=== PATIENT | male | born 1980 | race Caucasian/White ===

== ENCOUNTER 2018-02-07 22:00 | Emergency (ER) | payer SELFPAY | END 2018-02-07 23:31 | disposition home or self-care (01) | LOC: ER 22:00 | DX: K04.7 Periapical abscess without sinus (principal); K02.9 Dental caries, unspecified; F17.210 Nicotine dependence, cigarettes, uncomplicated | CPT/HCPCS: 99283 ==

== ENCOUNTER 2018-02-11 13:31 | Inpatient (IN) | payer SELFPAY ==
[2018-02-11] MEDS: CLINDAMYCIN 900MG PREMIX 50 ML IV (13:53)
[2018-02-11] MEDS: KETOROLAC 30 MG/ML INJ. IV (13:54)
[2018-02-11] MEDS: methylPREDNISolone SOD SUCC PF 125 MG/2 ML VIAL. IV (13:54)
[2018-02-11] MEDS: MORPHINE SULFATE 10 MG/ML VIAL. IV (13:54)
[2018-02-11 13:55] LABS: ADD MAN DIFF? NO
[2018-02-11 13:57] LABS: BASO # 0.1 x10^3/uL (0.0-0.2); BASO % 1 % (0-3); EOS # 0.2 x10^3/uL (0.0-0.7); EOS % 2 % (0-3); HEMATOCRIT 45.2 % (39.0-53.0); HEMOGLOBIN 15.6 g/dL (13.0-17.5); LYMPH # 1.8 x10^3/uL (1.0-4.8); LYMPH % 16 % (24-48); MEAN CORPUSCULAR HEMOGLOBIN 31 pg (25-35); MEAN CORPUSCULAR HGB CONC 35 g/dL (31-37); MEAN CORPUSCULAR VOLUME 89 fL (79-100); MONO # 0.4 x10^3/uL (0.0-1.1); MONO % 4 % (0-9); NEUT # 8.8 x10^3uL (1.8-7.7); NEUT % 78 % (31-73); PLATELET COUNT 442 x10^3/uL (140-400); RED CELL DISTRIBUTION WIDTH 13.4 % (11.5-14.5); WHITE BLOOD COUNT 11.3 x10^3/uL (4.0-11.0)
[2018-02-11] MEDS ORDERED: CONTRAST GIVEN MC (14:00)
[2018-02-11] MEDS: IOHEXOL 300 MG/ML 100ML VIAL. IV (14:00)
[2018-02-11 14:08] LABS: ANION GAP 9 (6-14); BLOOD UREA NITROGEN 14 mg/dL (8-26); BUN/CREATININE RATIO 14 (6-20); CALCIUM 9.8 mg/dL (8.5-10.1); CARBON DIOXIDE 30 mmol/L (21-32); CHLORIDE 99 mmol/L (98-107); GFR 84.5; GLUCOSE 148 mg/dL (70-99); POTASSIUM 4.4 mmol/L (3.5-5.1); SODIUM 138 mmol/L (136-145)
[2018-02-11 14:10] LABS: ETHANOL < 10 mg/dL (0-10)
[2018-02-11 14:13] LABS: ALBUMIN 3.4 g/dL (3.4-5.0); ALBUMIN/GLOBULIN RATIO 0.7 (1.0-1.7); ALK PHOS 82 U/L (46-116); ALT (SGPT) 29 U/L (16-63); AST (SGOT) 14 U/L (15-37); C-REACTIVE PROTEIN 137.4 mg/L (0-3.3); TOTAL BILIRUBIN 0.5 mg/dL (0.2-1.0)
[2018-02-11 14:16] LABS: LACTIC ACID 1.5 mmol/L (0.4-2.0)
[2018-02-11 14:58] LABS: SEDIMENTATION RATE 46 (0-15)
[2018-02-11] MEDS: IV NORMAL SALINE 1000ML BAG 1,000 ML IV (15:15)
[2018-02-11] MEDS ORDERED: VANCOMYCIN PER PHARMACY MC ×2 (15:45→16:45)
[2018-02-11] MEDS: VANCOMYCIN 2 GM in IV 1/2 NORMAL SALINE 500 ML IV (16:00)
[2018-02-11] MEDS ORDERED: ACETAMINOPHEN 325 MG TABLET. PO (16:45)
[2018-02-11] MEDS ORDERED: PROCHLORPERAZINE 25 MG SUPP.RECT. PR (16:45)
[2018-02-11] MEDS ORDERED: PROCHLORPERAZINE 10 MG/2 ML VIAL. IV (16:45)
[2018-02-11] MEDS ORDERED: ONDANSETRON PF 4 MG/2 ML VIAL. IV ×2 (16:45)
[2018-02-11] MEDS ORDERED: CALCIUM CARBONATE 500 MG TAB.CHEW PO (16:45)
[2018-02-11] MEDS ORDERED: MAG HYDROX/ALUMINUM HYD/SIMETH 30 ML ORAL.SUSP PO (16:45)
[2018-02-11] MEDS ORDERED: ZOLPIDEM 5 MG TABLET. PO (16:45)
[2018-02-11] MEDS ORDERED: NICOTINE 21MG PATCH. TD (17:00)
[2018-02-11 17:41] LABS: AMPHETAMINE/METHAMPHETAMINE NEG (NEG); BARBITURATES NEG (NEG); BENZODIAZEPINES NEG (NEG); CANNABINOIDS NEG (NEG); COCAINE NEG (NEG); ETHANOL, URINE NEG (NEG); METHADONE NEG (NEG); OPIATES POS (NEG); PHENCYCLIDINE NEG (NEG)
[2018-02-11] MEDS ORDERED: AMPICILLIN/SULBACTAM 1.5 GM in IV NORMAL SALINE 50ML 50 ML IV (18:00)
[2018-02-11] MEDS: ACETAMINOPHEN/CODEINE 300/30MG TABLET. PO (18:34)
[2018-02-11] MEDS: SULBACTAM IVP ×2 (20:06→20:30)
[2018-02-11] MEDS: AMPICILLIN IVP ×2 (20:06→20:30)
[2018-02-11] MEDS: CHLORHEXIDINE 0.12% 15 ML MOUTHWASH. SWSP (21:20)
[2018-02-11] MEDS: IBUPROFEN 400 MG TABLET. PO (21:20)
[2018-02-11] MEDS: PSEUDOEPHEDRINE ER 120 MG TABLET.ER. PO (21:20)
[2018-02-11] MEDS ORDERED: CLINDAMYCIN 900MG PREMIX 50 ML IV (22:00)
[2018-02-12] MEDS ORDERED: VANCOMYCIN 1.25 GM in IV 1/2 NORMAL SALINE 250 ML IV
[2018-02-12] MEDS: ACETAMINOPHEN/CODEINE 300/30MG TABLET. PO ×4 (00:40→20:32)
[2018-02-12] MEDS: AMPICILLIN IVP ×4 (03:00→20:30)
[2018-02-12] MEDS: SULBACTAM IVP ×4 (03:00→20:30)
[2018-02-12 04:50] LABS: BASO % 0 % (0-3); EOS % 0 % (0-3); HEMATOCRIT 41.5 % (39.0-53.0); LYMPH # 0.9 x10^3/uL (1.0-4.8); LYMPH % 7 % (24-48); MEAN CORPUSCULAR HEMOGLOBIN 30 pg (25-35); MEAN CORPUSCULAR HGB CONC 34 g/dL (31-37); MEAN CORPUSCULAR VOLUME 89 fL (79-100); MONO # 0.6 x10^3/uL (0.0-1.1); MONO % 5 % (0-9); NEUT # 10.7 x10^3uL (1.8-7.7); NEUT % 87 % (31-73); PLATELET COUNT 451 x10^3/uL (140-400); RED BLOOD COUNT 4.65 x10^6/uL (4.30-5.70); RED CELL DISTRIBUTION WIDTH 13.6 % (11.5-14.5); WHITE BLOOD COUNT 12.3 x10^3/uL (4.0-11.0)
[2018-02-12 04:58] LABS: ADD MAN DIFF? YES
[2018-02-12 05:25] LABS: ANION GAP 12 (6-14); BLOOD UREA NITROGEN 17 mg/dL (8-26); CALCIUM 9.3 mg/dL (8.5-10.1); CARBON DIOXIDE 24 mmol/L (21-32); CHLORIDE 102 mmol/L (98-107); CREATININE 1.1 mg/dL (0.7-1.3); GFR 75.7; GLUCOSE 147 mg/dL (70-99); POTASSIUM 4.5 mmol/L (3.5-5.1); SODIUM 138 mmol/L (136-145)
[2018-02-12 07:34] LABS: % BANDS 2 % (0-9); % LYMPHS 5 % (24-48); % MONOS 3 % (0-10); % MYELOS 1 % (0-0); % SEGS 89 % (35-66); PLT ESTIMATE INCREASED (ADEQUATE)
[2018-02-12] MEDS: FLUTICASONE 50MCG/NASAL SPRAY 16GM BOTTLE. NS (08:18)
[2018-02-12] MEDS: IBUPROFEN 400 MG TABLET. PO ×3 (08:19→20:31)
[2018-02-12] MEDS: MORPHINE SULFATE 4 MG/ML DISP.SYRIN. IV ×2 (08:26→15:38)
[2018-02-12] MEDS: PSEUDOEPHEDRINE ER 120 MG TABLET.ER. PO ×2 (09:47→20:31)
[2018-02-12] MEDS: CHLORHEXIDINE 0.12% 15 ML MOUTHWASH. SWSP ×2 (13:09→20:33)
[2018-02-12] MEDS: LACTOBACILLUS RHAMNOSUS GG 1 CAPSULE. PO (20:30)
[2018-02-13] MEDS: SULBACTAM IVP ×3 (02:41→14:39)
[2018-02-13] MEDS: AMPICILLIN IVP ×3 (02:41→14:39)
[2018-02-13] MEDS: ACETAMINOPHEN/CODEINE 300/30MG TABLET. PO ×3 (02:42→15:20)
[2018-02-13 06:31] LABS: ADD MAN DIFF? NO
[2018-02-13 06:33] LABS: BASO # 0.1 x10^3/uL (0.0-0.2); BASO % 1 % (0-3); EOS # 0.1 x10^3/uL (0.0-0.7); EOS % 1 % (0-3); HEMATOCRIT 40.2 % (39.0-53.0); LYMPH # 2.4 x10^3/uL (1.0-4.8); LYMPH % 30 % (24-48); MEAN CORPUSCULAR HEMOGLOBIN 31 pg (25-35); MEAN CORPUSCULAR HGB CONC 35 g/dL (31-37); MEAN CORPUSCULAR VOLUME 88 fL (79-100); MONO # 0.5 x10^3/uL (0.0-1.1); MONO % 7 % (0-9); NEUT # 4.8 x10^3uL (1.8-7.7); NEUT % 62 % (31-73); PLATELET COUNT 429 x10^3/uL (140-400); RED BLOOD COUNT 4.57 x10^6/uL (4.30-5.70); RED CELL DISTRIBUTION WIDTH 13.3 % (11.5-14.5); WHITE BLOOD COUNT 7.8 x10^3/uL (4.0-11.0)
[2018-02-13 06:53] LABS: ANION GAP 7 (6-14); BLOOD UREA NITROGEN 18 mg/dL (8-26); CALCIUM 8.7 mg/dL (8.5-10.1); CARBON DIOXIDE 27 mmol/L (21-32); CHLORIDE 105 mmol/L (98-107); GFR 84.5; GLUCOSE 91 mg/dL (70-99); POTASSIUM 4.2 mmol/L (3.5-5.1); SODIUM 139 mmol/L (136-145)
[2018-02-13] MEDS: LACTOBACILLUS RHAMNOSUS GG 1 CAPSULE. PO ×2 (09:08→21:03)
[2018-02-13] MEDS: IBUPROFEN 400 MG TABLET. PO ×3 (09:08→21:03)
[2018-02-13] MEDS: PSEUDOEPHEDRINE ER 120 MG TABLET.ER. PO ×2 (09:09→21:02)
[2018-02-13] MEDS: MORPHINE SULFATE 4 MG/ML DISP.SYRIN. IV ×2 (09:09→21:04)
[2018-02-13] MEDS: CHLORHEXIDINE 0.12% 15 ML MOUTHWASH. SWSP ×2 (09:09→21:04)
[2018-02-13] MEDS: FLUTICASONE 50MCG/NASAL SPRAY 16GM BOTTLE. NS (09:38)
[2018-02-13] MEDS ORDERED: AMPICILLIN IVP (14:30)
[2018-02-13] MEDS ORDERED: SULBACTAM IVP (14:30)
[2018-02-13] MEDS: AMPICILLIN/SULBACTAM IV Push 3 GM VIAL. IVP (18:14)
[2018-02-14] MEDS: AMPICILLIN/SULBACTAM IV Push 3 GM VIAL. IVP ×5 (00:33→23:22)
[2018-02-14] MEDS: ACETAMINOPHEN/CODEINE 300/30MG TABLET. PO ×3 (00:42→19:56)
[2018-02-14] MEDS: IBUPROFEN 400 MG TABLET. PO ×3 (08:30→19:55)
[2018-02-14] MEDS: FLUTICASONE 50MCG/NASAL SPRAY 16GM BOTTLE. NS (08:30)
[2018-02-14] MEDS: LACTOBACILLUS RHAMNOSUS GG 1 CAPSULE. PO ×2 (08:30→19:55)
[2018-02-14] MEDS: PSEUDOEPHEDRINE ER 120 MG TABLET.ER. PO ×2 (08:30→19:55)
[2018-02-14] MEDS: CHLORHEXIDINE 0.12% 15 ML MOUTHWASH. SWSP ×2 (08:30→19:56)
[2018-02-14] MEDS: HYDROcodone/APAP 7.5/325MG 1 TAB TABLET PO ×2 (17:33→23:22)
[2018-02-15] MEDS: ACETAMINOPHEN/CODEINE 300/30MG TABLET. PO (02:14)
[2018-02-15] MEDS: HYDROcodone/APAP 7.5/325MG 1 TAB TABLET PO ×2 (05:49→12:10)
[2018-02-15] MEDS: AMPICILLIN/SULBACTAM IV Push 3 GM VIAL. IVP ×2 (05:49→12:10)
[2018-02-15 07:00] LABS: BASO # 0.1 x10^3/uL (0.0-0.2); BASO % 1 % (0-3); EOS # 0.4 x10^3/uL (0.0-0.7); EOS % 4 % (0-3); HEMATOCRIT 41.2 % (39.0-53.0); HEMOGLOBIN 14.1 g/dL (13.0-17.5); LYMPH # 3.5 x10^3/uL (1.0-4.8); LYMPH % 38 % (24-48); MEAN CORPUSCULAR HEMOGLOBIN 30 pg (25-35); MEAN CORPUSCULAR HGB CONC 34 g/dL (31-37); MEAN CORPUSCULAR VOLUME 89 fL (79-100); MONO # 0.5 x10^3/uL (0.0-1.1); MONO % 6 % (0-9); NEUT # 4.6 x10^3uL (1.8-7.7); NEUT % 51 % (31-73); PLATELET COUNT 440 x10^3/uL (140-400); RED BLOOD COUNT 4.64 x10^6/uL (4.30-5.70); WHITE BLOOD COUNT 9.1 x10^3/uL (4.0-11.0)
[2018-02-15 07:01] LABS: ALBUMIN 2.8 g/dL (3.4-5.0); ALBUMIN/GLOBULIN RATIO 0.7 (1.0-1.7); ALK PHOS 70 U/L (46-116); ALT (SGPT) 41 U/L (16-63); ANION GAP 3 (6-14); AST (SGOT) 16 U/L (15-37); BLOOD UREA NITROGEN 16 mg/dL (8-26); BUN/CREATININE RATIO 15 (6-20); CALCIUM 8.9 mg/dL (8.5-10.1); CARBON DIOXIDE 31 mmol/L (21-32); CHLORIDE 106 mmol/L (98-107); CREATININE 1.1 mg/dL (0.7-1.3); GFR 75.7; GLUCOSE 82 mg/dL (70-99); POTASSIUM 4.5 mmol/L (3.5-5.1); SODIUM 140 mmol/L (136-145); TOTAL BILIRUBIN 0.2 mg/dL (0.2-1.0)
[2018-02-15 07:07] LABS: ADD MAN DIFF? YES
[2018-02-15] MEDS: FLUTICASONE 50MCG/NASAL SPRAY 16GM BOTTLE. NS (08:43)
[2018-02-15] MEDS: PSEUDOEPHEDRINE ER 120 MG TABLET.ER. PO (08:43)
[2018-02-15] MEDS: LACTOBACILLUS RHAMNOSUS GG 1 CAPSULE. PO (08:43)
[2018-02-15] MEDS: IBUPROFEN 600 MG TABLET. PO (08:44)
[2018-02-15] MEDS: CHLORHEXIDINE 0.12% 15 ML MOUTHWASH. SWSP (08:44)
[2018-02-15 10:00] LABS: % BASOS 1 % (0-3); % EOS 3 % (0-5); % LYMPHS 26 % (24-48); % METAS 2 % (0-0); % MONOS 7 % (0-10); % SEGS 61 % (35-66); PLT ESTIMATE INCREASED (ADEQUATE)
== END 2018-02-15 14:10 | disposition home or self-care (01) | DRG 872 ==
LOC: 4 NORTH 17:43 → ER 13:31 → 4 NORTH 02-12 14:15
DX: A41.9 Sepsis, unspecified organism (principal); L03.211 Cellulitis of face; J01.00 Acute maxillary sinusitis, unspecified; K04.7 Periapical abscess without sinus; F17.210 Nicotine dependence, cigarettes, uncomplicated
CPT/HCPCS: 36415; 70487; 80048; 80053; 80307; 83605; 85007; 85025; 85651; 86140; G0480; J0295; J1885; J2270; J2930; J3370; J3490; J7030; Q9967

== ENCOUNTER 2018-07-01 09:47 | Emergency (ER) | payer SELFPAY ==
[~2018-07-01] VITALS: Ht 180.3 cm; Wt 90.7 kg
[~2018-07-01 09:47] MED LIST: AMOX1TAB61 PO; CHLO473M SWSP; GUAI600T47 PO; HYDR-2762 PO; HYDR-971 PO; PSEU30CA PO
[2018-07-01 10:00] VITALS: BP 122/89
[2018-07-01] MEDS ORDERED: cefTRIAXone IM 1 GM VIAL IM ONE (10:15)
[2018-07-01] MEDS ORDERED: HYDROcodone/APAP 5/325MG 1 TAB TABLET PO ONE (10:15)
[2018-07-01] MEDS ORDERED: LIDOCAINE 1% PF 2 ML VIAL. INJ ONE (10:15)
[2018-07-01] MEDS ORDERED: CLIN150C14 PO (10:19)
[2018-07-01] MEDS ORDERED: HYDR-971 PO (10:19)
--- NOTE | 2018-07-01 10:20 | PHYS DOC ---
Past Medical History Past Medical History: No Pertinent History Past Surgical History: No Surgical History Alcohol Use: None Drug Use: None Adult General Chief Complaint Chief Complaint: DENTAL PROBLEM HPI HPI Patient is a 38 year old male who presents with a dental abscess that began a month ago. Patient denies any fever, denies any trismus. He states his had a similar abscess in January. He states he followed up with a dentist who cleaned his teeth and recommended dental fillings but he does not have money for dental filling. Review of Systems Review of Systems Constitutional: Denies fever or chills [] Eyes: Denies change in visual acuity, redness, or eye pain [] HENT: Reports dental abscess. Denies nasal congestion or sore throat [] Respiratory: Denies cough or shortness of breath [] Cardiovascular: No additional information not addressed in HPI [] GI: Denies abdominal pain, nausea, vomiting, bloody stools or diarrhea [] : Denies dysuria or hematuria [] Musculoskeletal: Denies back pain or joint pain [] Integument: Denies rash or skin lesions [] Neurologic: Denies headache, focal weakness or sensory changes [] All other systems were reviewed and found to be within normal limits, except as documented in this note. Current Medications Current Medications Current Medications Medications (Trade) Dose Ordered Sig/Diana Start Time Stop Time Status Last Admin Dose Admin Acetaminophen/ Hydrocodone Bitart (Lortab 5/325) 2 tab 1X ONCE 07/01/18 10:15 07/01/18 10:16 UNV Ceftriaxone Sodium (Rocephin Im) 1 gm 1X ONCE 07/01/18 10:15 07/01/18 10:16 UNV Lidocaine HCl (Xylocaine-Mpf 1% 2ml Vial) 2 ml 1X ONCE 07/01/18 10:15 07/01/18 10:16 UNV Allergies Allergies Allergies Coded Allergies Type Severity Reaction Last Updated Verified No Known Drug Allergies 02/07/18 No Physical Exam Physical Exam Constitutional: Well developed, well nourished, no acute distress, non-toxic appearance. [] HENT: Normocephalic, atraumatic, bilateral external ears normal, oropharynx moist, no oral exudates, nose normal. [] Upper lip with mild soft tissue swelling. Dental abscess noted around the frenulum region with yellow purulent drainage. I did express some of the pus out but patient could not tolerate it. Scattered infected dental caries noted throughout his teeth Eyes: PERRLA, EOMI, conjunctiva normal, no discharge. [] Neck: Normal range of motion, no tenderness, supple, no stridor. [] Cardiovascular:Heart rate regular rhythm, no murmur [] Lungs & Thorax: Bilateral breath sounds clear to auscultation [] Abdomen: Bowel sounds normal, soft, no tenderness, no masses, no pulsatile masses. [] Skin: Warm, dry, no erythema, no rash. [] Back: No tenderness, no CVA tenderness. [] Extremities: No tenderness, no cyanosis, no clubbing, ROM intact, no edema. [] Neurologic: Alert and oriented X 3, normal motor function, normal sensory function, no focal deficits noted. [] Psychologic: Affect normal, judgement normal, mood normal. [] Current Patient Data Vital Signs Vital Signs Date Time Temp Pulse Resp B/P (MAP) Pulse Ox O2 Delivery O2 Flow Rate FiO2 07/01/18 10:00 98.2 81 18 122/89 (100) 100 Room Air 98.2 EKG EKG [] Radiology/Procedures Radiology/Procedures [] Course & Med Decision Making Course & Med Decision Making Pertinent Labs and Imaging studies reviewed. (See chart for details) Patient has a dental abscess has hx of another abscess in January that resulted in hospitalization. Was given Rocephin IM and sent home on clindamycin, Peridex and Weldon. Encouraged F/u with dentist in the course of next week. Dragon Disclaimer Dragon Disclaimer This electronic medical record was generated, in whole or in part, using a voice recognition dictation system. Departure Departure Impression: Primary Impression: Dental abscess Disposition: 01 HOME, SELF-CARE Condition: STABLE Referrals: NO PCP (PCP) follow up with your dentist next week Patient Instructions: Dental Abscess Additional Instructions: You were evaluated in the emergency room for dental abscess. We put you on several medications, take them as prescribed. Follow-up with your dentist as soon as possible. Scripts Chlorhexidine Gluconate (PERIDEX) 15 Ml Mouthwash 15 ML PO BID, #[id number] ML Prov: MUTUNGA,DENZEL DELIVERY DRIVER/SUPERVISOR 07/01/18 Clindamycin Hcl (CLINDAMYCIN HCL) 150 Mg Capsule 3 CAP PO TID, #90 CAP Prov: MUTUNGA,DENZEL DELIVERY DRIVER/SUPERVISOR 07/01/18 Hydrocodone/Apap 5-325 (NORCO 5-325 TABLET) 1 Each Tablet 1 TAB PO Q6HRS PRN for PAIN, #40 TAB Prov: DENZEL ARAIZA APRN 07/01/18 DENZEL ARAIZA APRN Jul 01, 2018 10:20
[2018-07-01] MEDS ORDERED: CHLO15MO2 PO (10:21)
== END 2018-07-01 10:37 | disposition home or self-care (01) ==
LOC: ER 09:47
DX: K04.7 Periapical abscess without sinus (principal)
CPT/HCPCS: 96372; 99284; J0696